=== PATIENT | female | born 1960 | race Caucasian/White ===

== ENCOUNTER 2016-11-13 10:26 | Day surgery (SDC) | payer OTHER ==
[2016-11-13 11:44] VITALS: BMI 25.4
[2016-11-13] MEDS ORDERED: PROPOFOL 20 ML ONE (12:37)
[2016-11-13] MEDS ORDERED: LIDOCAINE HCL/PF 1% SDV 5ML VIAL ONE (12:37)
[2016-11-13 14:05] VITALS: BP 136/75
[2016-11-13 14:45] VITALS: PULSE 68; TEMP 98
--- NOTE | 2016-11-14 13:43 | PATH ---
Surgical Pathology Report Patient Name: CRISTINO AUSTIN [facility]. Rec. #: [id number] /Age/Gender: 1960 (Age: 56) / F Account: [id number] Location: U-ENDOSCOPY Taken: 11/13/2016 Received: 11/13/2016 Reported: 11/14/2016 Physicians: Jerry Serrano M.D. Specimen(s) Received A: BX DUODENUM B: BX BODY ERYTHEMA Clinical History Early satiety, reflux Hiatal hernia, gastritis Final Diagnosis A. DUODENUM, BIOPSY: DUODENAL MUCOSA WITH CHRONIC INFLAMMATION. NO HISTOLOGIC EVIDENCE OF GLUTEN SENSITIVE ENTEROPATHY (CELIAC DISEASE). B. STOMACH, BODY, ERYTHEMA, BIOPSY: GASTRIC OXYNTIC MUCOSA WITH MODERATE CHRONIC GASTRITIS. IMMUNOSTAIN FOR H. PYLORI IS NEGATIVE FOR ORGANISMS. Electronically Signed Kvng Ohara M.D. Gross Description A. Received in formalin, labeled "biopsy duodenum" are 2 niman, irregular portions of soft tissue measuring 0.2 and 0.4 cm in greatest dimension. The specimens are submitted in toto in one cassette. B. Received in formalin, labeled "biopsy body erythema" are 3 inman, irregular portions of soft tissue ranging from 0.1-0.5 cm in greatest dimension. The specimens are submitted in toto in one cassette. 11/13/201611/13/2016
== END 2016-11-13 14:35 | disposition home or self-care (01) ==
LOC: JASU-ENDO 10:26
PROVIDERS: ATTEND Internal Medicine Gastroenterology
PROC: 0DB68ZX Excision of Stomach, Via Natural or Artificial Opening Endoscopic, Diagnostic (ICD-10-PCS; principal; 2016-11-13 11:30)
DX: K29.50 Unspecified chronic gastritis without bleeding (principal); K29.80 Duodenitis without bleeding; K44.9 Diaphragmatic hernia without obstruction or gangrene
CPT/HCPCS: 88305-TC; 88342-TC

== ENCOUNTER 2022-01-24 23:11 | Emergency (ER) | payer OTHER ==
[2022-01-24 23:18] VITALS: TEMP 98.2; BMI 25.0
[2022-01-24] MEDS ORDERED: dilTIAZem HCL 50 MG/10 ML - 10 ML VIAL IVPUSH ONE (23:45)
[2022-01-25] MEDS ORDERED: dilTIAZem HCL 125 MG/25 ML - 25 ML VIAL ONE (00:05)
[2022-01-25 00:47] LABS: CALCIUM 9.4 mg/dL (8.5-10.1)
[2022-01-25 00:48] LABS: ALBUMIN 4.1 g/dl (3.4-5.0); MAGNESIUM 2.3 mg/dL (1.8-2.4)
[2022-01-25 00:51] LABS: CREATININE 0.8 mg/dL (0.55-1.3); PHOSPHOROUS 2.4 mg/dL (2.5-4.9)
[2022-01-25] MEDS ORDERED: ONDANSETRON 4 MG/2 ML VIAL IVPUSH ONE (00:51)
[2022-01-25] MEDS ORDERED: MECLIZINE HCL 25 MG TABLET (FP) PO ONE (00:51)
[2022-01-25 00:53] LABS: BILIRUBIN,TOTAL 0.8 mg/dL (0.2-1); TOT PROT 7.8 g/dl (6.4-8.2)
[2022-01-25 00:58] LABS: BASO % 0.9 % (0-2.0); EOS % 5.2 % (0-4.5); HEMATOCRIT 39.1 % (32.4-45.2); HEMOGLOBIN 13.4 GM/dL (10.7-15.3); LYMPH % 27.9 % (8-40); MCHC 34.2 g/dl (32.0-36.0); MEAN CELL VOLUME 99.4 fl (80-96); MEAN PLT VOLUME 7.8 fl (7.5-11.1); PLATELET COUNT 210 10^3/uL (134-434); RBC 3.93 M/mm3 (3.60-5.2); RDW 14.2 % (11.6-15.6); WHITE BLOOD COUNT 3.3 K/mm3 (4.0-10.0)
[2022-01-25] MEDS ORDERED: POTASSIUM CHLORIDE ORAL LIQUID 20 MEQ/15 ML PO ONE ×2 (01:12→01:18)
[2022-01-25] MEDS ORDERED: POTASSIUM CHLORIDE TABS 20 MEQ TABLET.ER (FP) PO ONE ×2 (01:21→01:22)
[2022-01-25] MEDS ORDERED: ONDANSETRON 4 MG/2 ML VIAL ONE (01:22)
[2022-01-25] MEDS ORDERED: MECLIZINE HCL 25 MG TABLET (FP) ONE (01:22)
[2022-01-25 02:34] VITALS: BP 154/79; PULSE 74
== END 2022-01-25 02:38 | disposition left against medical advice (07) ==
LOC: JER 23:11 → MERGE 23:11 → JER 01-25 02:38
DX: R00.2 Palpitations (principal); I48.91 Unspecified atrial fibrillation
CPT/HCPCS: 0241U-QW; 36415; 71045-TC-FY; 80053; 83735; 84100; 84443; 84484; 85025; 87807; 93005; 93010; 99285-25; C9803-CS; U0003; U0005

== ENCOUNTER 2023-04-14 18:38 | Emergency (ER) | payer OTHER ==
[2023-04-14 18:44] VITALS: BP 129/71; PULSE 85; RESP 18; TEMP 99.7; BMI 25.7
== END 2023-04-14 22:30 | disposition left against medical advice (07) ==
LOC: JER 18:38
DX: R10.9 Unspecified abdominal pain (principal); R11.0 Nausea; R50.9 Fever, unspecified; R53.1 Weakness
CPT/HCPCS: 99281-25

== ENCOUNTER 2024-05-26 19:16 | Emergency (ER) | payer OTHER ==
[2024-05-26 19:23] VITALS: BP 184/86; PULSE 71; RESP 18; TEMP 98.2; BMI 25.7
[2024-05-26 21:14] LABS: BASO % 0.7 % (0-2.0); HEMATOCRIT 38.9 % (32.4-45.2); HEMOGLOBIN 13.5 GM/dL (10.7-15.3); LYMPH % 28.8 % (8-40); MCHC 34.7 g/dl (32.0-36.0); MEAN CELL VOLUME 97.9 fl (80-96); MEAN PLT VOLUME 7.8 fl (7.5-11.1); MONO % 10.6 % (3.8-10.2); NEUT % 53.9 % (42.8-82.8); PLATELET COUNT 254 10^3/uL (134-434); RBC 3.97 M/mm3 (3.60-5.2); RDW 14.9 % (11.6-15.6); WHITE BLOOD COUNT 4.3 K/mm3 (4.0-10.0)
[2024-05-26 21:29] LABS: POTASSIUM 4.9 mmol/L (3.5-5.1)
[2024-05-26 21:31] LABS: CALCIUM 9.5 mg/dL (8.5-10.1)
[2024-05-26 21:32] LABS: BLOOD UREA NITROGEN 18.2 mg/dL (7-18)
[2024-05-26 21:36] LABS: BILIRUBIN,TOTAL 0.6 mg/dL (0.2-1)
== END 2024-05-26 22:20 | disposition home or self-care (01) ==
LOC: JER 19:16
DX: R07.9 Chest pain, unspecified (principal)
CPT/HCPCS: 36415; 71046-TC-FY; 80053; 84484; 85025; 93005; 93010; 99285-25